=== PATIENT | male | born 1980 | race Caucasian/White ===

== ENCOUNTER 2017-02-01 10:37 | Emergency (ER) | payer BC ==
--- NOTE | 2017-02-01 10:50 | EDM.PDOC ---
ED HPI Skin/Rash - General Chief Complaint: Skin Complaint Stated Complaint: ALERGIC REACTIONS Time Seen by Provider: 02/01/17 10:45 Source: Reports: Patient History Limitations: Reports: No limitations - History of Present Illness INITIAL COMMENTS - FREE TEXT/NARRATIVE: HISTORY AND PHYSICAL: History of present illness: [Patient comes to the emergency room for evaluation of an itchy rash. Woke up with itching and erythematous welts to various locations his body. Worst itching is around his waist and sides of his trunk. He has not had fever or chills. No sore throat or runny nose. He denies chest pain shortness of breath and difficulty breathing appetite is normal. No abdominal pain nausea vomiting constipation or diarrhea. No burning with urination. He is in a monogamous relationship. States that he's been feeling well and without recent illness or infection. He reports that he has not used any new body wash, laundry detergents , soaps, or medications. Denies a history of environmental or seasonal allergies. No new medications.] Review of systems: As per history of present illness and below otherwise all systems reviewed and negative. Past medical history: As per history of present illness and as reviewed below otherwise noncontributory. Surgical history: As per history of present illness and as reviewed below otherwise noncontributory. Social history: No reported history of drug or alcohol abuse. Family history: As per history of present illness and as reviewed below otherwise noncontributory. Physical exam: General: Well-developed well-nourished male in no acute distress. Rest comfortably and breathing easily on exam table. HEENT: Atraumatic, normocephalic. Oral mucous membranes are pink and moist. No oral lesions noted. Throat is clear and without swelling. No signs of angioedema. neck supple, nontender, no lymphadenopathy. Lungs: Clear to auscultation, breath sounds equal bilaterally. No wheezing crackles or rales. Heart: S1S2, regular rate rhythm. Abdomen: Normoactive bowel sounds. Soft, nondistended, nontender. Negative for masses, guarding or rebound. Negative for costovertebral tenderness. Pelvis: Stable nontender. Genitourinary: Deferred. Rectal: Deferred. Skin: Skin is warm dry pink and intact. Erythematous welts scattered to neck, chest, back, abdomen, trunk, buttocks, groin sparing penis, and anterior and posterior lower and upper extremities. No lesions to palms of hands or soles of feet. No facial lesions. Presentation of lesions is consistent with hives. Extremities: Atraumatic, negative for cords or calf pain. No cyanosis or edema to feet or lower legs. Full range of motion to all extremities. Neurovascular unremarkable. Neuro: Awake, alert, oriented. Motor and sensory unremarkable throughout. Exam nonfocal. Therapeutics: [Solu-Medrol 125 mg IM] Impression: [Urticaria] Plan: [ Solu-Medrol 125 given IM. Recommend Claritin or Zyrtec daily, Zantac twice a day and Benadryl at bedtime. Followup with a local primary care provider. Patient is in agreement with today's plan all of his questions are answered and concerns are addressed.] Definitive disposition and diagnosis as appropriate pending reevaluation and review of above. - Related Data Allergies Allergy/AdvReac Type Severity Reaction Status Date / Time levofloxacin [From Levaquin] Allergy veins Verified 02/01/17 10:44 double size Home Meds: Ambulatory Orders Medication Instructions Recorded Confirmed . [No Known Home Meds] 12/13/16 02/01/17 Past Medical History HEENT History: Reports: None Cardiovascular History: Reports: None Respiratory History: Reports: None Gastrointestinal History: Reports: None Genitourinary History: Reports: None Musculoskeletal History: Reports: None Neurological History: Reports: Concussion Psychiatric History: Reports: None Endocrine/Metabolic History: Reports: None Hematologic History: Reports: None Immunologic History: Reports: None Oncologic (Cancer) History: Reports: None Dermatologic History: Reports: None - Infectious Disease History Infectious Disease History: Reports: None - Past Surgical History Head Surgeries/Procedures: Reports: None HEENT Surgical History: Reports: None Cardiovascular Surgical History: Reports: None Respiratory Surgical History: Reports: None GI Surgical History: Reports: None Male Surgical History: Reports: None Endocrine Surgical History: Reports: None Neurological Surgical History: Reports: None Musculoskeletal Surgical History: Reports: None Dermatological Surgical History: Reports: None Social & Family History - Family History Family Medical History: Noncontributory - Tobacco Use Smoking Status *Q: Never Smoker Second Hand Smoke Exposure: No - Caffeine Use Caffeine Use: Reports: Coffee Caffeine Use Comment: 1/wk - Recreational Drug Use Recreational Drug Use: No ED ROS GENERAL - Review of Systems Review Of Systems: ROS reveals no pertinent complaints other than HPI. ED EXAM, SKIN/RASH Exam: See Below Course - Vital Signs Last Recorded V/S: Last Vital Signs Temp 97.9 F 02/01/17 10:55 Pulse 96 02/01/17 10:55 Resp 16 02/01/17 10:55 BP 140/89 02/01/17 10:55 Pulse Ox 99 02/01/17 10:55 - Orders/Labs/Meds Meds: Medications Discontinued Medications Generic Name Dose Route Start Last Admin Trade Name Rene PRN Reason Stop Dose Admin Methylprednisolone Sodium Succinate 125 mg 02/01/17 11:04 02/01/17 11:09 Solu-Medrol IM 02/01/17 11:05 125 mg ONETIME ONE Administration Departure - Departure Time of Disposition: 11:45 Disposition: Home, Self-Care 01 Condition: good Clinical Impression: Urticaria Referrals: PCP,None [Primary Care Provider] - Forms: ED Department Discharge Additional Instructions: The following information is given to patients seen in the emergency department who are being discharged to home. This information is to outline your options for follow-up care. We provide all patients seen in our emergency department with a follow-up referral. The need for follow-up, as well as the timing and circumstances, are variable depending upon the specifics of your emergency department visit. If you don't have a primary care physician on staff, we will provide you with a referral. We always advise you to contact your personal physician following an emergency department visit to inform them of the circumstance of the visit and for follow-up with them and/or the need for any referrals to a consulting specialist. The emergency department will also refer you to a specialist when appropriate. This referral assures that you have the opportunity for follow-up care with a specialist. All of these measure are taken in an effort to provide you with optimal care, which includes your follow-up. Under all circumstances we always encourage you to contact your private physician who remains a resource for coordinating your care. When calling for follow-up care, please make the office aware that this follow-up is from your recent emergency room visit. If for any reason you are refused follow-up, please contact the [facility] emergency department at and asked to speak to the emergency department charge nurse. JERSON [facility] [address] [place] [id number] Establish care with a local primary care provider in followup in the next 4-5 days. Take Claritin 10 mg or Zyrtec 10 mg once daily for the next 30 days. Takes Zantac 150 mg twice a day for the next 30 days. You can take Benadryl at bedtime as needed. This will make you drowsy. Monitor for any triggering factors such as foods, lotions or body washes. Return to ER as needed as discussed.
[2017-02-01] MEDS ORDERED: methylPREDNISolone Sodium Succinate 125 MG/2 ML SDV IM ONE (11:04)
[2017-02-01 11:52] VITALS: BP 136/72
== END 2017-02-01 11:51 | disposition home or self-care (01) ==
LOC: MW.ED 10:37
DX: L50.9 Urticaria, unspecified (principal); Z88.1 Allergy status to other antibiotic agents
CPT/HCPCS: 96372; 99282; J2930; 99283